=== PATIENT | female | born 1945 | race Caucasian/White ===

== ENCOUNTER 2018-10-13 09:22 | Emergency (ER) | payer OTHER, SELFPAY ==
[2018-10-13 09:30] VITALS: BP 172/74; PULSE 57; RESP 16; TEMP 36.7; O2SAT 96
--- NOTE | 2018-10-13 09:33 | DI.RAD.S_ITS ---
PROCEDURE: XR WRIST LT MIN 3V INDICATIONS: deformity TECHNIQUE: 3 views of the wrist were acquired. COMPARISON: None. FINDINGS: Bones: Mildly displaced impacted distal radial fracture. No intra-articular extension. No suspicious bony lesions. Scaphoid view: Not obtained. Soft tissues: No suspicious soft tissue calcifications. IMPRESSION: Mildly displaced distal radial fracture. Dictated by: Dayanara Azevedo M.D. on 10/13/2018 at 9:46 Approved by: aDyanara Azevedo M.D. on 10/13/2018 at 9:47
--- NOTE | 2018-10-13 11:49 | ED_ITS ---
HPI - Extremity Injury (Upper) General Chief Complaint: Extremity Injury, Upper Stated Complaint: fell left wrist injury last night Time Seen by Provider: 10/13/18 09:52 Source: patient Mode of arrival: ambulatory Limitations: no limitations History of Present Illness HPI narrative: Patient is a 72-year-old [id number] female here for evaluation of left wrist injury. Patient states that last evening she slipped and fell on the ice on her deck. Landed on her wrist. Has had pain and swelling since then. Did not hit her head. No loss of consciousness. Has not done anything for her wrist since the event. No other injuries reported. Related Data Home Medications Medication Instructions Recorded Confirmed furosemide 40 mg PO DAILY 10/13/18 10/13/18 metoprolol succinate 25 mg PO DAILY 10/13/18 10/13/18 oxybutynin chloride 10 mg PO DAILY 10/13/18 10/13/18 potassium chloride [K-Tab] 20 meq PO DAILY 10/13/18 10/13/18 tretinoin [Retin-A] 1 applic TOPICAL DIRECTED 10/13/18 10/13/18 venlafaxine 75 mg PO DAILY 10/13/18 Allergies Allergy/AdvReac Type Severity Reaction Status Date / Time lisinopril AdvReac Intermediate Cough Verified 10/13/18 09:33 Review of Systems Constitutional Denies frequent falls, Denies headache(s) and Denies weakness ENT Ears, Nose, Mouth, and Throat: Denies headache(s) Cardiovascular Denies chest pain and Denies dyspnea Respiratory Denies dyspnea Gastrointestinal Gastrointestinal: Denies abdominal pain Musculoskeletal Comments: Left wrist pain Integumentary/Breasts Denies lesions and Denies rash Neurologic Denies frequent falls, Denies headache(s), Denies paresthesias, Denies tremor(s) and Denies weakness Hematologic/Lymphatic Denies easy bleeding and Denies easy bruising [facility] Medical History Hypertension (Acute) Social History Smoking Status: Current every day smoker Social History Smoking Status: Current every day smoker Exam Initial Vital Signs Initial Vital Signs: Vital Signs Temperature 98.0 F 10/13/18 09:30 Pulse Rate 57 L 10/13/18 09:30 Respiratory Rate 16 10/13/18 09:30 Blood Pressure 172/74 H 10/13/18 09:30 Pulse Oximetry 96 10/13/18 09:30 Const General: cooperative, healthy appearing, comfortable, well developed and well groomed Orientation: alert and awake HENMT Head: normal to inspection and normocephalic Cardio Pulses: radial pulses present on the left GI Inspection: non-distended Palpation: soft and No firm Skin Lesions: no lesions Rashes: no rashes Neuro General: alert, awake and oriented x3 Sensory Exam: no sensory deficits noted Extrem General: normal to inspection and capillary refill normal Other: Of deformity to left wrist Psych Appearance: grossly normal and well kempt Procedures Orthopedic Splinting/Casting Injury #1: Side: left Upper Extremity Injury Location: wrist Upper Extremity Immobilizer: sugar tong splint Post splinting neuro exam: intact and no change Post splinting vascular exam: no change Placed by: Provider Course Orders Ordered: ED Orders 10/13/18 09:33 XR wrist LT min 3V Stat Vital Signs - 8 hr 10/13/18 09:30 Temperature 98.0 F Pulse Rate 57 L Respiratory Rate 16 Blood Pressure 172/74 H Pulse Oximetry 96 MDM - Extremity Injury (Upper) Imaging Data X-ray wrist: Radiologist's impression: PROCEDURE: XR WRIST LT MIN 3V INDICATIONS: deformity TECHNIQUE: 3 views of the wrist were acquired. COMPARISON: None. FINDINGS: Bones: Mildly displaced impacted distal radial fracture. No intra-articular extension. No suspicious bony lesions. Scaphoid view: Not obtained. Soft tissues: No suspicious soft tissue calcifications. IMPRESSION: Mildly displaced distal radial fracture. Dictated by: Dayanara Azevedo M.D. on 10/13/2018 at 9:46 Approved by: Dayanara Azevedo M.D. on 10/13/2018 at 9:47 [facility] Narrative Medical decision making narrative: Patient is neurovascularly intact. This was a mechanical fall. Left distal radius fracture placed in a splint. She was given care instructions and return precautions. She was given the phone number for the [facility] for follow-up. She expressed understanding and agreement plan. Discharge Plan Departure Patient Disposition: Home Clinical Impression: Fracture of wrist Qualifiers: Encounter type: initial encounter Fracture type: closed Laterality: left Qualified Code(s): S62.102A - Fracture of unspecified carpal bone, left wrist, initial encounter for closed fracture Discharge Date/Time: 10/13/18 12:49 Interventions: ED Discharge Assessment Last Done: 10/13/18 12:48 Instructions: How to Take Care of Your Splint, DI for Distal Radius Fracture Activity Restrictions/Additional Instructions: You do need to keep the splint on and keep it clean and keep it dry. Call the [facility] at [phone]. Also call your primary care doctor. Return to the emergency department for any new or worsening symptoms Prescriptions: No Action furosemide 40 mg Tablet 40 mg PO DAILY RF: 0 venlafaxine 75 mg Capsule,Extended Release 24hr 75 mg PO DAILY RF: 0 oxybutynin chloride 10 mg Tablet Extended Release 24hr 10 mg PO DAILY RF: 0 tretinoin [Retin-A] 0.025 % Cream 1 applic TOPICAL DIRECTED RF: 0 potassium chloride [K-Tab] 10 mEq Tablet Extended Release 20 meq PO DAILY RF: 0 metoprolol succinate 25 mg Tablet Extended Release 24 Hr 25 mg PO DAILY RF: 0
== END 2018-10-13 12:49 | disposition home or self-care (01) ==
PROVIDERS: Emergency Provider Emergency Medicine
DX: S62.102A Fracture of unspecified carpal bone, left wrist, initial encounter for closed fracture (principal); W01.0XXA Fall on same level from slipping, tripping and stumbling without subsequent striking against object, initial encounter
CPT/HCPCS: 73110; 99282; 99283

== ENCOUNTER 2020-06-24 15:30 | Outpatient (RCR) | payer OTHER, SELFPAY ==
--- NOTE | 2020-06-04 13:27 | ST.OPPOC ---
Physical, Occupational & Speech Therapy At [facility] Visit Care Team Role Provider Type Von Foley MD Attending Provider Non-Staff Primary Care Provider Referring Provider Address: [address] [place] [address], [id number] Speech Pathology Plan of Care Plan of Care Dates 06/04/20-09/04/20 Short Term Goals Ghada will be instructed in and use the strategy to exaggerate her articulatory movements in slowed speech during reading and other structured contexts. Ghada will be instructed in and perform OM exercises designed to target increased ROM and strength of right labial and lingual muscles. Longterm Goals Ghada's speech accuracy will improve to her baseline level. Electronically Signed by: KYRA Faria 06/04/20 [id number] Please Sign and Return: I have reviewed this Plan of Care and certify that the skilled therapy services above are required to meet the patient?s needs. Physician Signature Date Printed Name and Credentials Clinical Instructor Signature Printed Name and Credentials
--- NOTE | 2020-06-04 13:28 | ST.OPIE ---
Visit Care Team Role Provider Type Von Foley MD Attending Provider Non-Staff Primary Care Provider Referring Provider Specialty: Internal Medicine Address: [address] [place] [address], [id number] Email: Speech-Language Pathology Initial Evaluation BOAT CAPTAIN Motor Speech Evaluation Start: 06/04/20 09:35 Freq: Status: Active Protocol: Document 06/04/20 12:50 LNK (Rec: 06/04/20 13:27 LNK [id number]) Motor Speech Evaluation Session Time Visit Start Time 09:30 Visit Stop Time 10:30 Total Visit Minutes 60 Visit Information Visit Number 1 Plan of Care Dates 06/04/20-09/04/20 Setting Setting Outpatient Care Next Note Type Next Note Type Treatment Note Patient History Source: [place] [employer] ([employer]). Patient History Ghada presents for speech evaluation at the referral of her physician, Dr. Von Mejia. 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 She was hospitalized at [facility] overnight and discharged. 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 Ghada describes her speech production as a problem in that there are timed in which she can't say the word(s) accurately. Her described her speech as slurry. Ghada also reported that she has started to avoid speaking in some situations as she knows she will have difficulty. She stated that it has made her self-conscious. Referral Referring Physician Dr. Mejia Reason for Referral speech clarity Mental Status Mental Status Alert,Responsive,Cooperative Subjective Observations Subjective Pt arrived on time. She was pleasant and conversant. Oral Motor Lips Function Mild Impairment Observation at rest Very mild right labial droop. ROM and strength mildly effected Pucker WFL Retraction WFL Tongue Function Mild Impairment Observations at rest deviation to the right Protrusion deviation to the right Lateralization mild reduction in ROM Jaw Function WFL Soft Palate Function WFL Respiration/Phonation Phonation Quality WNL Loudness WNL Oral Reading Stimulus [place] Passage Quality WNL Function WFL Conversation Quality WNL Duration WNL Function WNL Loudness WNL Diadochokinetic Rates P^T^K^ Quality Moderate Impairment Comments Ghada was unable to sequence accurately in Rapid Alternation activity. Speech Intelligibility Phoneme Comments difficulty transitioning between voiced and voiceless phonemes Word Severity Mildly Impaired Comments more difficulty with multisyllabic words Sentence Severity WFL Conversation Severity WFL Awareness/Strategy Use Findings Details Motor Speech Function Mild Impairment Type of Impairment sequential coordination Assessment Details Assessment Ghada Colón presented with mild speech production impairment secondary to diminished OM coordination for sequencing phonemes as well as multisyllabic words together. Her OME indicated that she presents with right facial weakness, ROM and and difficulty sequencing /puh-tuh -kuh/ rapidly. Her speech impairment was observed several times during conversation. Her overall speech intelligibility is WFL. Prognosis Rehabilitation Potential Excellent Recommendations Frequency 1x/week x6 weeks Short Term Goals Ghada will be instructed in and use the strategy to exaggerate her articulatory movements in slowed speech during reading and other structured contexts. Ghada will be instructed in and perform OM exercises designed to target increased ROM and strength of right labial and lingual muscles. Set Up Inspector Goals Ghada's speech accuracy will improve to her baseline level. Patient/Family Education Education Described results of evaluation,Patient Understanding
--- NOTE | 2020-06-10 17:02 | ST.OPTN ---
Visit Care Team Role Provider Type Von Foley MD Attending Provider Non-Staff Primary Care Provider Referring Provider Address: [address] [place] [address], [id number] FIRE PROTECTION FABRICATOR Treatment Note FIRE PROTECTION FABRICATOR Treatment Note Start: 06/04/20 09:35 Freq: Status: Active Protocol: Document 06/10/20 15:23 LNK (Rec: 06/10/20 17:01 LNK [id number]) Speech Pathology Treatment Note Session Time Visit Start Time 15:30 Visit Stop Time 16:15 Total Visit Minutes 45 Visit Information Visit Number 2 Plan of Care Dates 06/04/20-09/04/20 Setting Treatment Setting Outpatient Care Visit Type Note Type Treatment Note Next Note Type Next Note Type Treatment Note General Information General Information Ghada presents for speech evaluation at the referral of her physician, Dr. Von Mejia. 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 She presented with mild speech production impairment secondary to diminished OM coordination for sequencing phonemes as well as multisyllabic words together. Her OME indicated that she presents with right facial weakness, ROM and and difficulty sequencing /puh-tuh -kuh/ rapidly. Her speech impairment was observed several times during conversation Subjective Identification Type Name,Picture Identification Reconciled With Intake Sheet Chief Complaint(s) Speech Rehab Expectation/Goals: Parent/Guardian Speech accuracy to return to /Bonding Equipment Operator Goals fluent/flowing baseline Patient Knowledge/Awareness of FIRE PROTECTION FABRICATOR Role Excellent in Treatment Objective Short Term Goals Ghada will be instructed in and use the strategy to exaggerate her articulatory movements in slowed speech during reading and other structured contexts. Ghada will be instructed in and perform OM exercises designed to target increased ROM and strength of right labial and lingual muscles. [ End ] Dry Folder Cloth Goals Ghada's speech accuracy will improve to her baseline level. Treatment Activities Ghada reported that her awareness of her articulators has increased. This has allowed her to be more aware of using exaggerated speaking movement to assist in better consonant sequencing. She further reported that she feels there has been improvement overall. Targeted tongue twisters for accuracy with goal to increase speed with accuracy. Additionally, word lists with /s-blends/ in words were provided with goal to increase/exaggerate oral movements for strength and ROM improvement. Ghada was able to practice and demonstrate the exercises. Will follow up in 2 weeks. Assessment Patient Response to Treatment Excellent Impairments Identified Articulation,Dysarthria,Oral Motor Progress Towards Goals Excellent Progress Assessment of Overall Progress Improving Assessment of Improvement Ghada reported improved clarity as well as improved self-confidence in having/ partaking in conversations. Reviewed with Patient Goals,Progress Being Made,Home Exercise Program Patient/Caregiver Understanding Excellent Plan Amount of Therapy Recommended 1-2 Months Comment 1x every 2-3 weeks Length of Session 45 Minutes Provided Patient/Caregiver Instruction Home Exercise Program, Questions/Concerns Therapy Recommendations Continue with Current Program, Recommended Exercises/ Activities
--- NOTE | 2020-06-24 16:52 | ST.OPTN ---
Visit Care Team Role Provider Type Von Foley MD Attending Provider Non-Staff Primary Care Provider Referring Provider Address: [address] [place] [address], [id number] COLLAR SETTER OVERLOCK Treatment Note COLLAR SETTER OVERLOCK Treatment Note Start: 06/04/20 09:35 Freq: Status: Active Protocol: Document 06/24/20 15:36 LNK (Rec: 06/24/20 16:52 LNK [id number]) Speech Pathology Treatment Note Session Time Visit Start Time 15:30 Visit Stop Time 16:15 Total Visit Minutes 45 Visit Information Visit Number 3 Plan of Care Dates 06/04/20-09/04/20 Setting Treatment Setting Outpatient Care Visit Type Note Type Treatment Note Next Note Type Next Note Type Treatment Note General Information General Information Ghada presents for speech evaluation at the referral of her physician, Dr. Von Mejia. 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 She presented with mild speech production impairment secondary to diminished OM coordination for sequencing phonemes as well as multisyllabic words together. Her OME indicated that she presents with right facial weakness, ROM and and difficulty sequencing /puh-tuh -kuh/ rapidly. Her speech impairment was observed several times during conversation Subjective Identification Type Name,Picture Identification Reconciled With Intake Sheet Chief Complaint(s) Speech Rehab Expectation/Goals: Parent/Guardian Speech accuracy to return to /Health Assessment And Treatment Teacher Goals fluent/flowing baseline Patient Knowledge/Awareness of COLLAR SETTER OVERLOCK Role Excellent in Treatment Objective Short Term Goals Ghada will be instructed in and use the strategy to exaggerate her articulatory movements in slowed speech during reading and other structured contexts. Ghada will be instructed in and perform OM exercises designed to target increased ROM and strength of right labial and lingual muscles. [ End ] Division Field Inspector Goals Ghada's speech accuracy will improve to her baseline level. Treatment Activities Ghada reported that she has noticed some difficulty when transitioning between anterior /posterior placement of phonemes as well as between voiced/voiceless phonemes. reminded her that she can use exaggerated speaking movement and/or slow speaking rate to assist in better consonant sequencing. Targeted rapid alternating movements via tongue twisters, practicing back to front and visa versa movements quickly. Targeted tongue twisters for accuracy with goal to increase speed with accuracy. Additionally, word lists with /d,t/ in words were provided with goal to increase/exaggerate oral movements for strength and ROM improvement. Ghada was able to practice and demonstrate the exercises. Will follow up in 2 weeks. Assessment Patient Response to Treatment Excellent Impairments Identified Articulation,Dysarthria,Oral Motor Progress Towards Goals Excellent Progress Assessment of Overall Progress Improving Assessment of Improvement Ghada reported improved clarity as well as improved self-confidence in having/ partaking in conversations. Reviewed with Patient Goals,Progress Being Made,Home Exercise Program Patient/Caregiver Understanding Excellent Plan Amount of Therapy Recommended 1-2 Months Comment 1x every 2-3 weeks Length of Session 45 Minutes Provided Patient/Caregiver Instruction Home Exercise Program, Questions/Concerns Therapy Recommendations Continue with Current Program, Recommended Exercises/ Activities
--- NOTE | 2020-10-11 14:29 | ST.OPDS ---
Visit Care Team Role Provider Type Von Foley MD Attending Provider Non-Staff Primary Care Provider Referring Provider Address: [address] [place] [address], [id number] PERSONNEL INTERVIEWER Treatment Note PERSONNEL INTERVIEWER Treatment Note Start: 06/04/20 09:35 Freq: Status: Active Protocol: Document 10/11/20 14:25 LNK (Rec: 10/11/20 14:27 LNK [email or web address]) Speech Pathology Treatment Note Setting Treatment Setting Outpatient Care Visit Type Note Type Discharge Summary General Information General Information Ghada presents for speech evaluation at the referral of her physician, Dr. Von Mejia. 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 She presented with mild speech production impairment secondary to diminished OM coordination for sequencing phonemes as well as multisyllabic words together. Her OME indicated that she presents with right facial weakness, ROM and and difficulty sequencing /puh-tuh -kuh/ rapidly. Her speech impairment was observed several times during conversation Objective Skilled Nursing Goals Ghada's speech accuracy will improve to her baseline level. Treatment Activities Ghada has not been seen for speech therapy since 06/24/21. Will discharge at this time. Plan Amount of Therapy Recommended No Further Therapy Frequency of Treatment No Further Therapy Therapy Recommendations Discharge from Speech Therapy
== END 2020-10-18 09:17 ==
LOC: SP 15:30
PROVIDERS: PCP Internal Medicine; Referring Provider Internal Medicine; Visit Provider Internal Medicine
DX: Z86.73 Personal history of transient ischemic attack (TIA), and cerebral infarction without residual deficits (principal); R47.1 Dysarthria and anarthria
CPT/HCPCS: 92507; 92522